=== PATIENT | male | born 1945 | race Caucasian/White ===

== ENCOUNTER 2019-04-10 11:43 | Outpatient (CLI) | payer OTHER, SELFPAY ==
[2019-04-10 12:55] LABS: Abs Immature Grans 0.01 k/cumm (0.0-0.09); Absolute Basophil Count 0.01 k/cumm (0.0-0.2); Absolute Lymphocyte Count 0.84 k/cumm (1.2-3.4); Absolute Monocyte Count 1.01 k/cumm (0.11-0.7); Absolute Neutrophil Count 6.14 k/cumm (1.2-6.7); Basophils % 0.1; HCT 44.1 % (40.0-50.0); HGB 14.9 g/dL (13.5-17.5); Immature Grans % 0.1; Lymphocytes % 10.5; Mean Corp. HGB Concentration 33.8 g/dL (32.0-36.0); Mean Corpuscular Hemoglobin 31.3 pg (27.0-33.0); Mean Corpuscular Volume 92.6 fL (80-95); Mean Platelet Volume 11.5 fL (8.0-11.0); Monocytes % 12.6; Neutrophils % 76.7; Platelet Count 164 x1000/uL (130-400); RBC 4.76 m/cumm (4.50-6.00); RBC Distribution Width 13.4 % (11.8-14.1); White Blood Cell Count 8.01 k/cumm (4.4-10.8)
[2019-04-10 13:04] LABS: INR 1.3 (0.9-1.1); Prothrombin Time 13.2 sec (9.3-11.0)
[2019-04-10 14:10] LABS: ALT 90 U/L (12-78); AST 75 U/L (15-37); Albumin 3.1 g/dL (3.4-5.0); Alkaline Phosphatase 78 U/L (46-116); Anion Gap 12.9 mmol/L (3-11); BUN 16 mg/dL (7-18); CO2 25.1 mmol/L (21.0-32.0); CREATININE 1.01 mg/dL (0.70-1.30); Calcium 8.2 mg/dL (8.5-10.1); Chloride 96 mmol/L (98-107); Glucose 115 mg/dL (70-100); Potassium 3.9 mmol/L (3.5-5.1); Sodium 134 mmol/L (136-145); Total Protein 6.4 g/dL (6.4-8.2)
== END 2019-04-10 12:03 ==
PROVIDERS: PCP Family Medicine; Visit Provider Nurse Practitioner Family
DX: J18.9 Pneumonia, unspecified organism (principal)
CPT/HCPCS: 36415; 80053; 85025; 85610

== ENCOUNTER 2019-04-12 00:55 | Emergency (ER) | payer OTHER, SELFPAY ==
[2019-04-12] VITALS (75 sets, daily range): BP systolic 100–138; BP diastolic 65–95; PULSE 50–136; RESP 0–30; TEMP 37–38.1; O2SAT 89–98
--- NOTE | 2019-04-12 01:03 | ED.GENADUL_ITS ---
Discharge Plan Disposition Patient Disposition: [facility], [place] Condition: Stable Discharge Details Chief Complaint: SOB Clinical Impression: Pneumonia involving right lung, Atrial fibrillation with RVR, Subtherapeutic anticoagulation ED Provider: Iban Kumar [place] Karthik and New Rx's Prescriptions: No Action hydrochlorothiazide 12.5 mg capsule 12.5 mg PO DAILY Qty: 90 RF: 4 amoxicillin-pot clavulanate 875-125 mg tablet 1 tab PO Q12H Qty: 14 RF: 0 benzonatate 100 mg capsule 100 - 200 mg PO TID PRN (Reason: cough) Qty: 60 RF: 0 celecoxib 100 MG capsule 100 mg PO DAILY Qty: 90 RF: 4 diltiazem HCl 240 mg capsule,ext.rel 24h degradable 240 mg PO DAILY Qty: 90 RF: 4 lisinopril 20 mg tablet 20 mg PO DAILY Qty: 90 RF: 4 metoprolol succinate 100 mg tablet extended release 24 hr 100 mg PO DAILY Qty: 90 RF: 4 simvastatin 40 mg tablet 40 mg PO DAILY Qty: 90 RF: 4 warfarin [Coumadin] 5 MG tablet 5 mg PO DIRECTED RF: 0 Medical Decision Making Patient presenting with A. fib with RVR with history of same. He is being treated for pneumonia with Augmentin x3 doses. He is tachypneic with marked lung changes on the right. Will place IV and start fluid resuscitation. Check laboratory studies including blood cultures and sputum culture. Chest x-ray ordered. EKG shows rapid A. fib with PVCs. No acute ST elevation. Left bundle branch apparent. No old to compare he will need admission. There are no beds at this hospital. He is a [facility] patient so I will be contacting [place]. Laboratory studies from his doctor visit reveals a non-therapeutic INR. Normal white count. Normal chemistries. Elevated LFTs to some degree. [facility] 02:45 - Patient's white count remains normal. Chemistries significant for sodium of 128 which is down from previous just done 2 days ago. Kidney function remains normal. Liver function continues to go up with AST of 105 and ALT of 117. Lactic acid is less than 2. Magnesium a little low at 1.7. I will replace with 2 g of IV mag. Saturations and respiratory rate is better after the neb and on oxygen. Troponin is negative. Chest x-ray shows a significant right lower lobe infiltrate. His heart rate is still elevated but is not jumping up to the 130 - 140 range. Discussed with the [facility] in [place]. They have accepted the patient for admission but cannot take him until tomorrow morning after 8. We will keep the patient in the ED until can transfer in the morning by ambulance. We will plan second liter of LR prior to giving beta-tracie for rate control if this does not bring his rate down. 06:00 - Patient's heart rate has come down without use of medication. He has responded to fluids. His blood pressure has held. Magnesium is completed. Antibiotics are completed. Heart rate is now below 100. He still has PVCs. He is stable and awaiting transport by ambulance to the [facility] in [place]. 07:00 - Patient discussed with Dr. Vuong again at [facility]. He is updated on patient status. Patient is accepted for transfer with ambulance estimated for transport at 8 am. Medical Records Medical records reviewed: Yes I reviewed the patient's medical records. Imaging Data Radiologic Study: Attestation: I personally reviewed and interpreted this imaging study as follows: Imaging: X-Ray My impression: RLL pneumonia Lab Data Lab results reviewed: Yes I reviewed the patient's lab results. 04/12/19 02:05 Blood Blood Culture - Pending 04/12/19 01:18 Blood Blood Culture - Pending Laboratory Tests Range/Units 04/12/19 04/12/19 04/12/19 01:18 01:18 01:18 WBC (4.4-10.8) k/cumm 10.17 RBC (4.50-6.00) m/cumm 4.55 Hgb (13.5-17.5) g/dL 14.4 Hct (40.0-50.0) % 41.2 MCV (80-95) fL 90.5 MCH (27.0-33.0) pg 31.6 MCHC (32.0-36.0) g/dL 35.0 RDW (11.8-14.1) % 13.3 Plt Count (130-400) x1000/uL 187 MPV (8.0-11.0) fL 10.5 Immature Gran % 0.2 Neutrophils % 81.0 Lymphocytes % 8.5 Monocytes % 10.0 Eosinophils % 0.2 Basophils % 0.1 Absolute Neutrophils (1.2-6.7) k/cumm 8.24 H Absolute Lymphocytes (1.2-3.4) k/cumm 0.86 L Absolute Monocytes (0.11-0.7) k/cumm 1.02 H Absolute Eosinophils (0.0-0.7) k/cumm 0.02 Absolute Basophils (0.0-0.2) k/cumm 0.01 PT (9.3-11.0) sec INR (0.9-1.1) Sodium (136-145) mmol/L 128 L Potassium (3.5-5.1) mmol/L 3.5 Chloride (98-107) mmol/L 92 L Carbon Dioxide (21.0-32.0) mmol/L 24.7 Anion Gap (3-11) mmol/L 11.3 H BUN (7-18) mg/dL 19 H Creatinine (0.70-1.30) mg/dL 1.07 Estimated GFR/1.73 m2 (mL/min/1.73m2) >= 60.00 Glucose (70-100) mg/dL 129 H Lactate (0.6-1.4) mmol/l 1.5 H Calcium (8.5-10.1) mg/dL 8.2 L Magnesium (1.8-2.4) mg/dL 1.7 L Total Bilirubin (0.2-1.0) mg/dL 1.9 H AST (15-37) U/L 105 H ALT (12-78) U/L 117 H Alkaline Phosphatase (46-116) U/L 93 Troponin I (0.00-0.06) ng/mL 0.06 Total Protein (6.4-8.2) g/dL 6.7 Albumin (3.4-5.0) g/dL 2.8 L Range/Units 04/12/19 01:18 WBC (4.4-10.8) k/cumm RBC (4.50-6.00) m/cumm Hgb (13.5-17.5) g/dL Hct (40.0-50.0) % MCV (80-95) fL MCH (27.0-33.0) pg MCHC (32.0-36.0) g/dL RDW (11.8-14.1) % Plt Count (130-400) x1000/uL MPV (8.0-11.0) fL Immature Gran % Neutrophils % Lymphocytes % Monocytes % Eosinophils % Basophils % Absolute Neutrophils (1.2-6.7) k/cumm Absolute Lymphocytes (1.2-3.4) k/cumm Absolute Monocytes (0.11-0.7) k/cumm Absolute Eosinophils (0.0-0.7) k/cumm Absolute Basophils (0.0-0.2) k/cumm PT (9.3-11.0) sec 12.1 H INR (0.9-1.1) 1.2 H Sodium (136-145) mmol/L Potassium (3.5-5.1) mmol/L Chloride (98-107) mmol/L Carbon Dioxide (21.0-32.0) mmol/L Anion Gap (3-11) mmol/L BUN (7-18) mg/dL Creatinine (0.70-1.30) mg/dL Estimated GFR/1.73 m2 (mL/min/1.73m2) Glucose (70-100) mg/dL Lactate (0.6-1.4) mmol/l Calcium (8.5-10.1) mg/dL Magnesium (1.8-2.4) mg/dL Total Bilirubin (0.2-1.0) mg/dL AST (15-37) U/L ALT (12-78) U/L Alkaline Phosphatase (46-116) U/L Troponin I (0.00-0.06) ng/mL Total Protein (6.4-8.2) g/dL Albumin (3.4-5.0) g/dL ECG Data Attestation: I personally reviewed and interpreted this ECG (s) as follows: Prior ECG tracings: not available for review Interpretation: Atrial fibrillation with PVCs. Left bundle branch appearance. Nonspecific ST changes. HPI General Mode of arrival: ambulatory . Date/Time Provider Initiated Documentation: 04/12/19 00:59 . Limitations to Documentation: no limitations . Information obtained by: patient, RN notes reviewed and old records reviewed . HPI Narrative: Patient is brought in for increased difficulty breathing, cough, fever. Patient started feeling unwell with generalized weakness and malaise a week ago. He developed cough and was seen by primary care couple days ago. He was started on Augmentin for presumed pneumonia. He has taken 3 doses. He feels worse tonight and has had increased difficulty breathing. He has no pain. He has had some episodes of nausea and vomiting. He does tolerate fluids and continues to make urine. Reportedly had a fever to 103 at home this evening and was brought in for evaluation. Related Data Home Medications Medication Instructions Recorded Confirmed warfarin [Coumadin] 5 mg PO DIRECTED 11/02/13 04/12/19 celecoxib 100 mg PO DAILY #90 cap 02/01/18 04/12/19 diltiazem ER (XR/XT) 240 mg 240 mg PO DAILY #90 tab 07/19/18 04/12/19 capsule,extended release 24 hr, controlled lisinopril 20 mg tablet 20 mg PO DAILY #90 tab-cap 07/19/18 04/12/19 metoprolol succinate ER 100 mg 100 mg PO DAILY #90 tab-cap 07/19/18 04/12/19 tablet,extended release 24 hr simvastatin 40 mg tablet 40 mg PO DAILY #90 tab 07/19/18 04/12/19 hydrochlorothiazide 12.5 mg capsule 12.5 mg PO DAILY #90 cap 02/07/19 04/12/19 amoxicillin 875 mg-potassium 1 tab PO Q12H #14 tab 04/10/19 04/12/19 clavulanate 125 mg tablet benzonatate 100 mg capsule 100 - 200 mg PO TID PRN #60 cap 04/10/19 04/12/19 Previous Rx's Medication Instructions Recorded celecoxib 100 mg PO DAILY #90 cap 02/01/18 diltiazem ER (XR/XT) 240 mg 240 mg PO DAILY #90 tab 07/19/18 capsule,extended release 24 hr, controlled lisinopril 20 mg tablet 20 mg PO DAILY #90 tab-cap 07/19/18 metoprolol succinate ER 100 mg 100 mg PO DAILY #90 tab-cap 07/19/18 tablet,extended release 24 hr simvastatin 40 mg tablet 40 mg PO DAILY #90 tab 07/19/18 hydrochlorothiazide 12.5 mg capsule 12.5 mg PO DAILY #90 cap 02/07/19 amoxicillin 875 mg-potassium 1 tab PO Q12H #14 tab 04/10/19 clavulanate 125 mg tablet benzonatate 100 mg capsule 100 - 200 mg PO TID PRN #60 cap 04/10/19 Allergies Allergy/AdvReac Type Severity Reaction Status Date / Time No Known Allergies Allergy Verified 04/12/19 01:11 Review of Systems Review of Systems 07/28 Review of Systems completed and is negative except as stated above in HPI (Systems reviewed: Const, Eyes, ENT, Resp, CV, GI, , MSK, Skin, Neuro) [facility] Medical History Atrial fibrillation (Chronic) Essential hypertension (Chronic 02/01/18) Hyperlipidemia (Chronic) MCFP (current) use of anticoagulants (Chronic) Primary cardiomyopathy (Chronic) Surgical History Extraction of cataract (~2013) KNEE REPAIR Family History Mother Heart disease Father Heart disease Neoplasm Brother No problems noted. Brother No problems noted. Maternal Grandmother No problems noted. Son No problems noted. Son No problems noted. Son No problems noted. Daughter No problems noted. Daughter No problems noted. FAMILY HISTORY Heart disease Social History Smoking/Tobacco Use Status: Former Tobacco Use Second Hand Exposure: No Alcohol Intake: current Alcohol Intake frequency: a few times a week Alcohol type: beer, wine and hard liquor Drug use: Never Substance use type: does not use Household members: spouse Housing: house Communication Needs: None Do you need help understanding health information?: Never Pets and animals: Yes Pets and animals: cat(s), dog(s) and horse(s) Sexually active: Yes Do you think of yourself as: straight/heterosexual Current gender identity: male What is your relationship status?: How often do you talk on the phone with friends or family?: three or more times per week How often do you get together with friends or relatives?: once per week How often do you attend judaism or catholic services?: decline to answer Do you belong to any clubs or organized social groups?: no Panel score (0-1 are the most socially isolated patients): 2 What type of physical activity do you participate in: swimming Duration: < 15 minutes/day Frequency: 3-4 times per week Lia/Voodoo: None Special lia needs: No Seatbelt use: always Helmet use: No Drive intox or ride w/intox driver salesman: No Do you feel safe at home: Yes Do you feel safe in your relationship?: Yes Exam Narrative Exam Narrative: Vitals: Afebrile but feels hot. Tachycardic but normal blood pressure. Tachypneic with saturations in the low 90s. Const: WDWN male in NAD. HEENT: NC/AT. Normal facial exam. Mucous membranes dry. Eyes: Normal conjunctiva and sclera. Neck: Supple. Trachea midline. Lungs: Tachypneic. Loud rhonchi in the right mid to lower lung field. Scattered wheezing throughout but more prominent on the right. Cor: Irregularly irregular rhythm with tachycardia. No murmur appreciated. Good radial pulses. GI: Soft. NT/ND. No guarding or rebound. Neuro: A+O x 3. CN grossly in tact. Good strength and no focal deficit. Ext: No C/C/E. No deformity or tenderness. Skin: Hot and dry without rash. Critical Care Time Critical Care Time: Yes Total Critical Care Time: 60 Attestation: Upon my evaluation, this patient had a high probability of imminent or life-threatening deterioration, which required my direct attention, intervention, and personal management. I have personally provided 60 minutes of critical care time exclusive of time spent on separately billable procedures. Time includes review of laboratory data, radiology results, discussion with consultants, and monitoring for potential decompensation. Interventions were performed as documented above.
[2019-04-12 01:36] LABS: Lactate-non-spesis 1.5 mmol/l (0.6-1.4)
[2019-04-12] MEDS: Albuterol/Ipratropium 3 ML UPD VIAL UPD (01:36)
[2019-04-12] MEDS: Lactated Ringers 1,000 ML 1000 ML IV ×2 (01:37→04:00)
[2019-04-12 01:39] LABS: Abs Immature Grans 0.02 k/cumm (0.0-0.09); Absolute Basophil Count 0.01 k/cumm (0.0-0.2); Absolute Eosinophil Count 0.02 k/cumm (0.0-0.7); Absolute Lymphocyte Count 0.86 k/cumm (1.2-3.4); Absolute Monocyte Count 1.02 k/cumm (0.11-0.7); Absolute Neutrophil Count 8.24 k/cumm (1.2-6.7); Basophils % 0.1; Eosinophils % 0.2; HCT 41.2 % (40.0-50.0); HGB 14.4 g/dL (13.5-17.5); Immature Grans % 0.2; Lymphocytes % 8.5; Mean Corpuscular Hemoglobin 31.6 pg (27.0-33.0); Mean Corpuscular Volume 90.5 fL (80-95); Mean Platelet Volume 10.5 fL (8.0-11.0); Platelet Count 187 x1000/uL (130-400); RBC 4.55 m/cumm (4.50-6.00); RBC Distribution Width 13.3 % (11.8-14.1); White Blood Cell Count 10.17 k/cumm (4.4-10.8)
[2019-04-12] MEDS: cefTRIAXone 2 GM/50 ML BAG IVPB (01:46)
[2019-04-12] MEDS: Acetaminophen 325 MG TAB 650 MG PO (01:49)
[2019-04-12 01:51] LABS: INR 1.2 (0.9-1.1); Prothrombin Time 12.1 sec (9.3-11.0)
[2019-04-12 01:57] LABS: ALT 117 U/L (12-78); AST 105 U/L (15-37); Albumin 2.8 g/dL (3.4-5.0); Alkaline Phosphatase 93 U/L (46-116); Anion Gap 11.3 mmol/L (3-11); BUN 19 mg/dL (7-18); Bilirubin, Total 1.9 mg/dL (0.2-1.0); CO2 24.7 mmol/L (21.0-32.0); CREATININE 1.07 mg/dL (0.70-1.30); Calcium 8.2 mg/dL (8.5-10.1); Chloride 92 mmol/L (98-107); Glucose 129 mg/dL (70-100); Magnesium 1.7 mg/dL (1.8-2.4); Potassium 3.5 mmol/L (3.5-5.1); Sodium 128 mmol/L (136-145); Total Protein 6.7 g/dL (6.4-8.2); Troponin I 0.06 ng/mL (0.00-0.06)
--- NOTE | 2019-04-12 02:10 | DI.RAD_ITS ---
SYMPTOM/DIAGNOSIS: COUGH, SOB PORTABLE CHEST: No prior comparison exams are available. The heart is enlarged and the aorta is tortuous. There is an infiltrate seen in the right mid and lower lung sim. The left lung appears clear. IMPRESSION: Right lower lobe infiltrate. Cardiomegaly.
[2019-04-12] MEDS: AZITHROMYCIN 500 MG in Normal Saline 250 ML 250 MG IVPB (02:26)
--- NOTE | 2019-04-12 03:05 | DI.VRAD_ITS ---
EXAM: XR Chest, 1 View EXAM DATE/TIME: 04/12/2019 1:25 AM CLINICAL HISTORY: 73 years old, male; Cough and shortness of breath TECHNIQUE: Imaging protocol: XR of the chest, 1 view. COMPARISON: No relevant prior studies available. FINDINGS: Lungs: Nonspecific right lung infiltrate, possibly of infectious or inflammatory etiology. Pleural space: Unremarkable. No pleural effusion. No pneumothorax. Heart/Mediastinum: Unremarkable. No cardiomegaly. Bones/joints: Unremarkable. IMPRESSION: Nonspecific right lung infiltrate, possibly of infectious or inflammatory etiology. Dictated and Authenticated by: Alvaro George MD. Ordering:SEEMA Ferrera MD
[2019-04-12] MEDS: MAGNESIUM SULFATE 2 GM/50 ML BAG IVPB (04:01)
[2019-04-12] MEDS: Normal Saline Flush 10 ML SYR IVP (05:37)
[2019-04-12] MEDS: Lactated Ringers 1,000 ML 150 ML IV (06:19)
== END 2019-04-12 08:14 | disposition short-term general hospital (02) ==
PROVIDERS: Emergency Provider Emergency Medicine; PCP Family Medicine
DX: J18.9 Pneumonia, unspecified organism (principal); I44.7 Left bundle-branch block, unspecified; I48.0 Paroxysmal atrial fibrillation; R79.1 Abnormal coagulation profile; Z79.01 Long term (current) use of anticoagulants; T45.515A Adverse effect of anticoagulants, initial encounter
CPT/HCPCS: 36415; 80053; 87040; 87449; 93005; 94640; 96361; 96365; 96366; 96367; 96368; 99285; 71045; 83605; 83735; 84484; 85025; 85610; 93010; J0456; J7620

== ENCOUNTER 2020-07-16 04:31 | Outpatient (CLI) | payer OTHER, SELFPAY ==
[2020-07-18 13:09] LABS: Patient Race White; SARS-CoV-2 RNA Undetected (Undetected); SARS-CoV-2 Specimen Source Nasal
== END 2020-07-16 04:51 ==
PROVIDERS: PCP Family Medicine; Visit Provider Family Medicine
DX: Z11.59 Encounter for screening for other viral diseases (principal)
CPT/HCPCS: U0003

== ENCOUNTER 2021-12-05 19:40 | Outpatient (REF) | payer OTHER, SELFPAY ==
[2021-12-05 21:57] LABS: Abs Immature Grans 0.05 10^3/uL (0.0-0.06); Absolute Basophil Count 0.06 10^3/uL (0.0-0.2); Absolute Lymphocyte Count 2.32 10^3/uL (1.2-3.4); Absolute Monocyte Count 1.32 10^3/uL (0.1-0.8); Basophils % 0.5; Eosinophils % 0.8; HCT 37.8 % (40.0-50.0); HGB 11.8 g/dL (13.5-17.5); Immature Grans % 0.4; Lymphocytes % 19.5; MCH 31.3 pg (27.0-33.0); MCHC 31.2 % (32.0-36.0); MCV 100.3 fL (80-95); MPV 11.1 fL (8.0-11.0); Monocytes % 11.1; Neutrophils % 67.7; Nucleated RBC 0 %; Platelet Count 490 10^3/uL (130-400); RBC 3.77 10^6/uL (4.36-5.78); RDW 14.5 % (11.8-14.1); RDW-SD 51.9 fL; WBC 11.88 10^3/uL (4.4-10.8)
[2021-12-05 22:00] LABS: Absolute Neutrophil Count 8.04 10^3/uL (1.2-6.7); ESR 57 mm/hr (0-20)
[2021-12-05 22:09] LABS: ALT 35 U/L (16-63); AST 23 U/L (15-37); Albumin 2.6 g/dL (3.4-5.0); Alkaline Phosphatase 96 U/L (46-116); Anion Gap 9.1 mmol/L (3-11); BUN 22 mg/dL (7-18); Bilirubin, Total 0.4 mg/dL (0.2-1.0); C-Reactive Protein 4.32 mg/dL (0.0-0.3); CO2 25.9 mmol/L (21.0-32.0); Calcium 8.9 mg/dL (8.5-10.1); Chloride 103 mmol/L (98-107); Glucose 102 mg/dL (74-106); Potassium 5.2 mmol/L (3.5-5.1); Sodium 138 mmol/L (136-145); Total Protein 6.5 g/dL (6.4-8.2)
== END 2021-12-05 19:41 | disposition home or self-care (01) ==
LOC: LBN 19:40
PROVIDERS: PCP Nurse Practitioner Family; Visit Provider Internal Medicine
DX: T84.54XA Infection and inflammatory reaction due to internal left knee prosthesis, initial encounter (principal); B95.7 Other staphylococcus as the cause of diseases classified elsewhere
CPT/HCPCS: 80053; 85652; 85025; 86140

== ENCOUNTER 2021-12-12 14:05 | Outpatient (REF) | payer OTHER, SELFPAY ==
[2021-12-12 15:04] LABS: Abs Immature Grans 0.03 10^3/uL (0.0-0.06); Absolute Basophil Count 0.03 10^3/uL (0.0-0.2); Absolute Eosinophil Count 0.11 10^3/uL (0.0-0.7); Absolute Lymphocyte Count 1.56 10^3/uL (1.2-3.4); Absolute Monocyte Count 1.01 10^3/uL (0.1-0.8); Absolute Neutrophil Count 5.24 10^3/uL (1.2-6.7); Basophils % 0.4; Eosinophils % 1.4; HCT 41.1 % (40.0-50.0); HGB 12.8 g/dL (13.5-17.5); Immature Grans % 0.4; Lymphocytes % 19.5; MCH 31.5 pg (27.0-33.0); MCHC 31.1 % (32.0-36.0); MCV 101.2 fL (80-95); MPV 11.2 fL (8.0-11.0); Monocytes % 12.7; Neutrophils % 65.6; Nucleated RBC 0 %; Platelet Count 297 10^3/uL (130-400); RBC 4.06 10^6/uL (4.36-5.78); RDW 15.3 % (11.8-14.1); WBC 7.98 10^3/uL (4.4-10.8)
[2021-12-12 15:13] LABS: ESR 26 mm/hr (0-20)
[2021-12-12 15:34] LABS: ALT 61 U/L (16-63); AST 39 U/L (15-37); Albumin 2.8 g/dL (3.4-5.0); Alkaline Phosphatase 95 U/L (46-116); Anion Gap 7.5 mmol/L (3-11); BUN 19 mg/dL (7-18); Bilirubin, Total 0.8 mg/dL (0.2-1.0); C-Reactive Protein 2.97 mg/dL (0.0-0.3); CO2 28.5 mmol/L (21.0-32.0); CREATININE 1.2 mg/dL (0.70-1.30); Chloride 100 mmol/L (98-107); Estimated GFR 59.18 (mL/min/1.73m2); Glucose 118 mg/dL (74-106); Potassium 4.1 mmol/L (3.5-5.1); Sodium 136 mmol/L (136-145); Total Protein 6.8 g/dL (6.4-8.2)
== END 2021-12-12 14:06 | disposition home or self-care (01) ==
LOC: NCHCN 14:05
PROVIDERS: PCP Nurse Practitioner Family; Visit Provider Internal Medicine
DX: T84.54XA Infection and inflammatory reaction due to internal left knee prosthesis, initial encounter (principal); B95.61 Methicillin susceptible Staphylococcus aureus infection as the cause of diseases classified elsewhere; Z79.2 Long term (current) use of antibiotics
CPT/HCPCS: 80053; 85652; 85025; 86140

== ENCOUNTER 2021-12-19 18:22 | Outpatient (REF) | payer OTHER, SELFPAY | END 2021-12-19 18:23 | disposition home or self-care (01) | LOC: LBN 18:22 | PROVIDERS: PCP Nurse Practitioner Family; Visit Provider Orthopaedic Surgery Foot and Ankle Surgery ==

== ENCOUNTER 2021-12-19 18:33 | Outpatient (REF) | payer OTHER, SELFPAY ==
[2021-12-19 22:20] LABS: HCT 42.6 % (40.0-50.0); HGB 13.8 g/dL (13.5-17.5); MCH 32.2 pg (27.0-33.0); MCHC 32.4 % (32.0-36.0); MCV 99.5 fL (80-95); MPV 11.3 fL (8.0-11.0); Platelet Count 268 10^3/uL (130-400); RBC 4.28 10^6/uL (4.36-5.78); RDW 15.7 % (11.8-14.1); RDW-SD 56.7 fL; WBC 6.97 10^3/uL (4.4-10.8)
[2021-12-19 22:21] LABS: ESR 46 mm/hr (0-20)
[2021-12-19 22:28] LABS: ALT 135 U/L (16-63); AST 88 U/L (15-37); Albumin 2.6 g/dL (3.4-5.0); Alkaline Phosphatase 87 U/L (46-116); Anion Gap 10.7 mmol/L (3-11); BUN 23 mg/dL (7-18); Bilirubin, Total 0.9 mg/dL (0.2-1.0); C-Reactive Protein 3.15 mg/dL (0.0-0.3); CO2 25.3 mmol/L (21.0-32.0); CREATININE 1.3 mg/dL (0.70-1.30); Calcium 8.6 mg/dL (8.5-10.1); Chloride 100 mmol/L (98-107); Estimated GFR 53.96 (mL/min/1.73m2); Glucose 122 mg/dL (74-106); Potassium 4.1 mmol/L (3.5-5.1); Sodium 136 mmol/L (136-145); Total Protein 6.5 g/dL (6.4-8.2)
== END 2021-12-19 18:34 | disposition home or self-care (01) ==
LOC: LBN 18:33
PROVIDERS: PCP Nurse Practitioner Family; Visit Provider Orthopaedic Surgery Foot and Ankle Surgery
DX: T84.54XD Infection and inflammatory reaction due to internal left knee prosthesis, subsequent encounter (principal); Z79.2 Long term (current) use of antibiotics; Z96.652 Presence of left artificial knee joint
CPT/HCPCS: 80053; 85027; 85652; 86140

== ENCOUNTER 2021-12-26 12:04 | Outpatient (REF) | payer OTHER, SELFPAY ==
[2021-12-26 13:25] LABS: Abs Immature Grans 0.02 10^3/uL (0.0-0.06); Absolute Basophil Count 0.05 10^3/uL (0.0-0.2); Absolute Eosinophil Count 0.07 10^3/uL (0.0-0.7); Absolute Lymphocyte Count 1.42 10^3/uL (1.2-3.4); Absolute Monocyte Count 0.79 10^3/uL (0.1-0.8); Absolute Neutrophil Count 4.62 10^3/uL (1.2-6.7); Basophils % 0.7; HCT 42.5 % (40.0-50.0); HGB 13.6 g/dL (13.5-17.5); Immature Grans % 0.3; Lymphocytes % 20.4; MCH 31.6 pg (27.0-33.0); MCV 98.8 fL (80-95); MPV 11.2 fL (8.0-11.0); Monocytes % 11.3; Neutrophils % 66.3; Nucleated RBC 0 %; Platelet Count 269 10^3/uL (130-400); RDW 15.4 % (11.8-14.1); RDW-SD 56.3 fL; WBC 6.97 10^3/uL (4.4-10.8)
[2021-12-26 13:31] LABS: ESR 36 mm/hr (0-20)
[2021-12-26 13:39] LABS: ALT 32 U/L (16-63); AST 25 U/L (15-37); Albumin 2.4 g/dL (3.4-5.0); Alkaline Phosphatase 79 U/L (46-116); Anion Gap 8.2 mmol/L (3-11); BUN 27 mg/dL (7-18); Bilirubin, Total 1.1 mg/dL (0.2-1.0); CO2 26.8 mmol/L (21.0-32.0); CREATININE 1.3 mg/dL (0.70-1.30); Calcium 8.3 mg/dL (8.5-10.1); Chloride 101 mmol/L (98-107); Estimated GFR 53.96 (mL/min/1.73m2); Glucose 107 mg/dL (74-106); Potassium 5.2 mmol/L (3.5-5.1); Sodium 136 mmol/L (136-145); Total Protein 6.1 g/dL (6.4-8.2)
== END 2021-12-26 12:05 | disposition home or self-care (01) ==
LOC: LBN 12:04
PROVIDERS: PCP Nurse Practitioner Family; Visit Provider Orthopaedic Surgery Foot and Ankle Surgery
DX: T84.54XA Infection and inflammatory reaction due to internal left knee prosthesis, initial encounter (principal)
CPT/HCPCS: 80053; 85652; 85025; 86140

== ENCOUNTER 2022-01-02 11:43 | Outpatient (REF) | payer OTHER, SELFPAY ==
[2022-01-02 13:41] LABS: Abs Immature Grans 0.03 10^3/uL (0.0-0.06); Absolute Basophil Count 0.04 10^3/uL (0.0-0.2); Absolute Eosinophil Count 0.09 10^3/uL (0.0-0.7); Absolute Lymphocyte Count 1.58 10^3/uL (1.2-3.4); Absolute Monocyte Count 0.68 10^3/uL (0.1-0.8); Absolute Neutrophil Count 4.38 10^3/uL (1.2-6.7); Basophils % 0.6; Eosinophils % 1.3; HCT 44.3 % (40.0-50.0); HGB 14.2 g/dL (13.5-17.5); Immature Grans % 0.4; Lymphocytes % 23.2; MCH 31.6 pg (27.0-33.0); MCHC 32.1 % (32.0-36.0); MCV 98.4 fL (80-95); MPV 10.8 fL (8.0-11.0); Neutrophils % 64.5; Nucleated RBC 0 %; Platelet Count 255 10^3/uL (130-400); RDW 15.1 % (11.8-14.1); RDW-SD 55.2 fL
[2022-01-02 13:44] LABS: ALT 20 U/L (16-63); AST 23 U/L (15-37); Albumin 2.5 g/dL (3.4-5.0); Alkaline Phosphatase 71 U/L (46-116); Anion Gap 8.6 mmol/L (3-11); BUN 23 mg/dL (7-18); Bilirubin, Total 1.2 mg/dL (0.2-1.0); C-Reactive Protein 2.73 mg/dL (0.0-0.3); CO2 25.4 mmol/L (21.0-32.0); CREATININE 1.2 mg/dL (0.70-1.30); Calcium 8.5 mg/dL (8.5-10.1); Chloride 99 mmol/L (98-107); Estimated GFR 59.18 (mL/min/1.73m2); Glucose 102 mg/dL (74-106); Potassium 4.8 mmol/L (3.5-5.1); Sodium 133 mmol/L (136-145); Total Protein 6.2 g/dL (6.4-8.2)
[2022-01-02 13:49] LABS: ESR 20 mm/hr (0-20)
== END 2022-01-02 11:44 | disposition home or self-care (01) ==
LOC: LBN 11:43
PROVIDERS: PCP Nurse Practitioner Family; Visit Provider Internal Medicine
DX: B95.61 Methicillin susceptible Staphylococcus aureus infection as the cause of diseases classified elsewhere (principal); Z79.2 Long term (current) use of antibiotics; T84.54XA Infection and inflammatory reaction due to internal left knee prosthesis, initial encounter
CPT/HCPCS: 80053; 85652; 85025; 86140

== ENCOUNTER 2022-03-10 13:00 | Outpatient (RCR) | payer OTHER, SELFPAY | END 2022-03-14 23:59 | disposition home or self-care (01) | LOC: CR 13:00 | PROVIDERS: PCP Nurse Practitioner Family; Visit Provider Internal Medicine Cardiovascular Disease | DX: Z51.89 Encounter for other specified aftercare (principal); I50.23 Acute on chronic systolic (congestive) heart failure | CPT/HCPCS: S9472 ==

== ENCOUNTER 2022-04-12 13:00 | Outpatient (RCR) | payer OTHER, SELFPAY | END 2022-04-13 23:59 | disposition home or self-care (01) | LOC: CR 13:00 | PROVIDERS: PCP Nurse Practitioner Family; Visit Provider Internal Medicine Cardiovascular Disease | DX: Z51.89 Encounter for other specified aftercare (principal); I50.23 Acute on chronic systolic (congestive) heart failure | CPT/HCPCS: S9472 ==

== ENCOUNTER 2022-05-12 13:00 | Outpatient (RCR) | payer OTHER, SELFPAY | END 2022-05-14 23:59 | disposition home or self-care (01) | LOC: CR 13:00 | PROVIDERS: PCP Nurse Practitioner Family; Referring Provider Internal Medicine Cardiovascular Disease; Visit Provider Internal Medicine Cardiovascular Disease | DX: Z51.89 Encounter for other specified aftercare (principal); I50.23 Acute on chronic systolic (congestive) heart failure | CPT/HCPCS: S9472 ==

== ENCOUNTER 2022-05-22 11:15 | Outpatient (RCR) | payer OTHER, SELFPAY | END 2022-06-14 23:59 | disposition home or self-care (01) | LOC: CR 11:15 | PROVIDERS: PCP Nurse Practitioner Family; Referring Provider Internal Medicine Cardiovascular Disease; Visit Provider Internal Medicine Cardiovascular Disease | DX: Z51.89 Encounter for other specified aftercare (principal); I50.23 Acute on chronic systolic (congestive) heart failure | CPT/HCPCS: S9472 ==

== ENCOUNTER 2022-06-08 13:07 | Outpatient (RCR) | payer SELFPAY ==
[2022-05-30 13:03] VITALS: BP 98/65; PULSE 72
[2022-06-01 13:03] VITALS: BP 121/83; PULSE 87
[2022-06-06 13:01] VITALS: BP 101/61; PULSE 75; O2SAT 97
[2022-06-08 13:08] VITALS: BP 111/66; PULSE 57; O2SAT 98
== END 2022-06-14 23:59 | disposition home or self-care (01) ==
LOC: CR 13:07
PROVIDERS: PCP Nurse Practitioner Family; Visit Provider Internal Medicine Cardiovascular Disease
DX: R69 Illness, unspecified (principal)

== ENCOUNTER 2022-07-13 13:02 | Outpatient (RCR) | payer SELFPAY ==
[2022-06-15 00:11] VITALS: BP 111/66; PULSE 57
[2022-06-15 13:00] VITALS: BP 94/48; PULSE 74
[2022-06-20 12:58] VITALS: BP 110/68; PULSE 63
[2022-06-22 13:04] VITALS: BP 114/69; PULSE 44
[2022-06-27 13:40] VITALS: BP 97/59; PULSE 65
[2022-06-29 12:56] VITALS: BP 106/68; PULSE 69
[2022-07-04 13:01] VITALS: BP 84/52; PULSE 44
[2022-07-11 13:00] VITALS: BP 129/73; PULSE 62
[2022-07-13 13:03] VITALS: BP 106/57; PULSE 82
== END 2022-07-14 23:59 | disposition home or self-care (01) ==
LOC: CR 13:02
PROVIDERS: PCP Nurse Practitioner Family; Visit Provider Internal Medicine Cardiovascular Disease
DX: R69 Illness, unspecified (principal)

== ENCOUNTER 2022-08-10 13:00 | Outpatient (RCR) | payer SELFPAY ==
[2022-07-15 00:20] VITALS: BP 106/57; PULSE 82
[2022-07-18 12:57] VITALS: BP 109/73; PULSE 64
[2022-07-20 12:59] VITALS: BP 113/68; PULSE 60
[2022-07-25 12:58] VITALS: BP 120/77; PULSE 75
[2022-07-27 13:05] VITALS: BP 117/72; PULSE 81
[2022-08-01 12:59] VITALS: BP 109/70; PULSE 68
[2022-08-03 13:00] VITALS: BP 112/81; PULSE 82
[2022-08-08 13:10] VITALS: BP 116/68; PULSE 65
[2022-08-10 14:00] VITALS: BP 116/67; PULSE 48
== END 2022-08-14 23:59 | disposition home or self-care (01) ==
LOC: CR 13:00
PROVIDERS: PCP Nurse Practitioner Family; Visit Provider Internal Medicine Cardiovascular Disease
DX: R69 Illness, unspecified (principal)
CPT/HCPCS: S9472

== ENCOUNTER 2022-09-12 13:03 | Outpatient (RCR) | payer SELFPAY ==
[2022-08-15 13:33] VITALS: BP 104/66; PULSE 46
[2022-08-17 13:06] VITALS: BP 100/56; PULSE 54
[2022-08-22 14:20] VITALS: BP 113/72; PULSE 51
[2022-08-24 13:05] VITALS: BP 101/63; PULSE 45
[2022-08-29 13:05] VITALS: BP 115/69; PULSE 92
[2022-08-31 13:07] VITALS: BP 110/64; PULSE 50
[2022-09-05 13:15] VITALS: BP 109/51; PULSE 72
[2022-09-12 13:13] VITALS: BP 112/68; PULSE 42
== END 2022-09-13 23:59 | disposition home or self-care (01) ==
LOC: CR 13:03
PROVIDERS: PCP Nurse Practitioner Family; Visit Provider Internal Medicine Cardiovascular Disease
DX: R69 Illness, unspecified (principal)

== ENCOUNTER 2022-10-12 12:58 | Outpatient (RCR) | payer SELFPAY ==
[2022-09-14 00:10] VITALS: BP 112/68; PULSE 42
[2022-09-14 13:28] VITALS: BP 107/63; PULSE 68
[2022-09-21 13:00] VITALS: BP 107/67; PULSE 84
[2022-09-26 13:05] VITALS: BP 102/67; PULSE 51
[2022-09-28 13:05] VITALS: BP 89/48; PULSE 44
[2022-10-03 13:08] VITALS: BP 137/86; PULSE 56
[2022-10-05 13:26] VITALS: BP 123/72; PULSE 62
[2022-10-10 13:06] VITALS: BP 117/69; PULSE 64
[2022-10-12 12:56] VITALS: BP 106/71; PULSE 58
== END 2022-10-14 23:59 | disposition home or self-care (01) ==
LOC: CR 12:58
PROVIDERS: PCP Nurse Practitioner Family; Visit Provider Internal Medicine Cardiovascular Disease
DX: R69 Illness, unspecified (principal)

== ENCOUNTER 2022-11-14 13:00 | Outpatient (RCR) | payer SELFPAY ==
[2022-10-15 00:19] VITALS: BP 106/71; PULSE 58
[2022-10-17 13:00] VITALS: BP 124/79; PULSE 73
[2022-10-19 15:19] VITALS: BP 111/75; PULSE 61
[2022-10-24 13:17] VITALS: BP 113/73; PULSE 66
[2022-10-26 14:16] VITALS: BP 118/69; PULSE 67
[2022-10-31 13:00] VITALS: BP 112/73; PULSE 66
[2022-11-02 13:09] VITALS: BP 100/60; PULSE 57
[2022-11-07 13:14] VITALS: BP 112/80; PULSE 85
[2022-11-09 13:00] VITALS: BP 111/65; PULSE 53
[2022-11-14 13:23] VITALS: BP 113/76; PULSE 82
== END 2022-11-14 23:59 | disposition home or self-care (01) ==
LOC: CR 13:00
PROVIDERS: PCP Nurse Practitioner Family; Visit Provider Internal Medicine Cardiovascular Disease
DX: R69 Illness, unspecified (principal)

== ENCOUNTER 2022-12-12 13:00 | Outpatient (RCR) | payer SELFPAY ==
[2022-11-23 13:23] VITALS: BP 100/62; PULSE 46
[2022-11-28 13:05] VITALS: BP 118/60; PULSE 85
[2022-11-30 13:02] VITALS: BP 108/85; PULSE 71; O2SAT 95
[2022-12-05 13:15] VITALS: BP 110/71; PULSE 78; O2SAT 97
[2022-12-07 13:07] VITALS: BP 103/66; PULSE 74
[2022-12-12 13:12] VITALS: BP 110/62; PULSE 71
== END 2022-12-12 23:59 | disposition home or self-care (01) ==
LOC: CR 13:00
PROVIDERS: PCP Nurse Practitioner Family; Visit Provider Internal Medicine Cardiovascular Disease
DX: R69 Illness, unspecified (principal)

== ENCOUNTER 2023-01-11 12:59 | Outpatient (RCR) | payer SELFPAY ==
[2022-12-13 00:17] VITALS: BP 110/62; PULSE 71
[2022-12-14 13:14] VITALS: BP 102/70; PULSE 51
[2022-12-19 13:11] VITALS: BP 120/73; PULSE 75
[2022-12-21 13:12] VITALS: BP 119/74; PULSE 79
[2022-12-26 13:07] VITALS: BP 127/83; PULSE 74
[2022-12-28 13:01] VITALS: BP 133/84; PULSE 59
[2023-01-02 13:09] VITALS: BP 115/68; PULSE 57
[2023-01-04 13:08] VITALS: BP 101/60; PULSE 45
[2023-01-09 13:05] VITALS: BP 124/82; PULSE 61
[2023-01-11 13:07] VITALS: BP 115/76; PULSE 77
== END 2023-01-12 23:59 | disposition home or self-care (01) ==
LOC: CR 12:59
PROVIDERS: PCP Nurse Practitioner Family; Visit Provider Internal Medicine Cardiovascular Disease

== ENCOUNTER 2023-02-08 13:12 | Outpatient (RCR) | payer SELFPAY ==
[2023-01-13 00:21] VITALS: BP 115/76; PULSE 77
[2023-01-18 13:08] VITALS: BP 108/67; PULSE 67
[2023-01-23 13:10] VITALS: BP 105/64; PULSE 52
[2023-01-25 13:03] VITALS: BP 112/70; PULSE 52
[2023-01-30 13:05] VITALS: BP 109/82; PULSE 82
[2023-02-01 13:20] VITALS: BP 130/74; PULSE 73
[2023-02-06 13:06] VITALS: BP 119/81; PULSE 75
[2023-02-08 13:18] VITALS: BP 120/62; PULSE 85
== END 2023-02-11 23:59 | disposition home or self-care (01) ==
LOC: CR 13:12
PROVIDERS: PCP Nurse Practitioner Family; Visit Provider Internal Medicine Cardiovascular Disease
DX: R69 Illness, unspecified (principal)

== ENCOUNTER 2023-03-13 12:59 | Outpatient (RCR) | payer SELFPAY ==
[2023-02-12 00:09] VITALS: BP 120/62; PULSE 85
[2023-02-13 13:21] VITALS: BP 139/81; PULSE 61
[2023-02-15 13:09] VITALS: BP 136/78; PULSE 72
[2023-02-20 13:12] VITALS: BP 120/84; PULSE 80
[2023-02-22 13:17] VITALS: BP 120/78; PULSE 63
[2023-02-27 13:59] VITALS: BP 108/73; PULSE 66
[2023-03-06 13:08] VITALS: BP 117/81; PULSE 77
[2023-03-08 13:02] VITALS: BP 106/57; PULSE 45
[2023-03-13 13:49] VITALS: BP 121/80; PULSE 81
== END 2023-03-14 23:59 | disposition home or self-care (01) ==
LOC: CR 12:59
PROVIDERS: PCP Nurse Practitioner Family; Visit Provider Internal Medicine Cardiovascular Disease

== ENCOUNTER 2023-04-12 13:05 | Outpatient (RCR) | payer SELFPAY ==
[2023-03-15 00:05] VITALS: BP 121/80; PULSE 81
[2023-03-15 13:31] VITALS: BP 111/67; PULSE 61
[2023-03-20 13:36] VITALS: BP 112/72; PULSE 66
[2023-03-22 13:02] VITALS: BP 129/71; PULSE 68
[2023-03-27 13:52] VITALS: BP 113/82; PULSE 74
[2023-03-29 13:12] VITALS: BP 126/73; PULSE 67
[2023-04-03 13:06] VITALS: BP 132/85; PULSE 78
[2023-04-05 13:00] VITALS: BP 85/49; PULSE 54
[2023-04-10 13:04] VITALS: BP 119/81; PULSE 79
[2023-04-12 13:09] VITALS: BP 122/65; PULSE 60
== END 2023-04-13 23:59 | disposition home or self-care (01) ==
LOC: CR 13:05
PROVIDERS: PCP Nurse Practitioner Family; Visit Provider Internal Medicine Cardiovascular Disease
DX: R69 Illness, unspecified (principal)

== ENCOUNTER 2023-05-10 13:04 | Outpatient (RCR) | payer SELFPAY ==
[2023-04-14 00:14] VITALS: BP 122/65; PULSE 60
[2023-04-19 13:13] VITALS: BP 104/72; PULSE 52
[2023-04-24 13:21] VITALS: BP 117/85; PULSE 54
[2023-04-26 13:10] VITALS: BP 130/81; PULSE 86
[2023-05-01 12:57] VITALS: BP 130/89; PULSE 54
[2023-05-03 13:33] VITALS: BP 120/72; PULSE 57
[2023-05-10 13:10] VITALS: BP 119/77; PULSE 83
[2023-05-10 15:49] VITALS: BP 119/77; PULSE 83
== END 2023-05-14 23:59 | disposition home or self-care (01) ==
LOC: CR 13:04
PROVIDERS: PCP Nurse Practitioner Family; Visit Provider Internal Medicine Cardiovascular Disease
DX: R69 Illness, unspecified (principal)

== ENCOUNTER 2023-06-14 13:07 | Outpatient (RCR) | payer SELFPAY ==
[2023-05-15 00:13] VITALS: BP 119/77; PULSE 83
[2023-05-15 13:22] VITALS: BP 117/79; PULSE 73
[2023-05-17 13:15] VITALS: BP 115/75; PULSE 65
[2023-05-22 13:04] VITALS: BP 128/84; PULSE 70
[2023-05-24 13:13] VITALS: BP 125/82; PULSE 85
[2023-05-29 13:37] VITALS: BP 120/75; PULSE 78
[2023-05-31 13:05] VITALS: BP 109/75; PULSE 91
[2023-06-12 13:22] VITALS: BP 118/80; PULSE 78
[2023-06-14 13:18] VITALS: BP 109/77; PULSE 66
== END 2023-06-14 23:59 | disposition home or self-care (01) ==
LOC: CR 13:07
PROVIDERS: PCP Nurse Practitioner Family; Visit Provider Internal Medicine Cardiovascular Disease
DX: R69 Illness, unspecified (principal)

== ENCOUNTER 2023-07-12 13:10 | Outpatient (RCR) | payer SELFPAY ==
[2023-06-15 00:07] VITALS: BP 109/77; PULSE 66
[2023-06-21 13:22] VITALS: BP 104/68; PULSE 61
[2023-06-26 13:07] VITALS: BP 116/76; PULSE 74
[2023-06-28 13:19] VITALS: BP 117/82; PULSE 82
[2023-07-03 13:16] VITALS: BP 111/74; PULSE 94
[2023-07-10 13:41] VITALS: BP 102/64; PULSE 44
[2023-07-12 13:12] VITALS: BP 122/80; PULSE 88
== END 2023-07-14 23:59 | disposition home or self-care (01) ==
LOC: CR 13:10
PROVIDERS: PCP Nurse Practitioner Family; Visit Provider Internal Medicine Cardiovascular Disease
DX: R69 Illness, unspecified (principal)

== ENCOUNTER 2023-08-14 13:13 | Outpatient (RCR) | payer SELFPAY ==
[2023-07-15 00:04] VITALS: BP 122/80; PULSE 88
[2023-07-17 12:58] VITALS: BP 108/79; PULSE 68
[2023-07-19 13:10] VITALS: BP 122/73; PULSE 84
[2023-07-24 13:20] VITALS: BP 131/79; PULSE 76
[2023-07-26 13:53] VITALS: BP 127/79; PULSE 63
[2023-07-31 13:07] VITALS: BP 116/80; PULSE 86
[2023-08-02 13:16] VITALS: BP 115/74; PULSE 68
[2023-08-07 13:41] VITALS: BP 129/88; PULSE 74
[2023-08-09 13:12] VITALS: BP 117/71; PULSE 76
[2023-08-14 13:08] VITALS: BP 102/77; PULSE 76
== END 2023-08-14 23:59 | disposition home or self-care (01) ==
LOC: CR 13:13
PROVIDERS: PCP Nurse Practitioner Family; Visit Provider Internal Medicine Cardiovascular Disease
DX: R69 Illness, unspecified (principal)

== ENCOUNTER 2023-09-13 13:10 | Outpatient (RCR) | payer SELFPAY ==
[2023-08-15 00:04] VITALS: BP 122/80; PULSE 88
[2023-08-16 13:09] VITALS: BP 111/82; PULSE 84
[2023-08-21 13:23] VITALS: BP 119/75; PULSE 50
[2023-08-23 13:01] VITALS: BP 126/81; PULSE 75
[2023-08-28 13:13] VITALS: BP 123/72; PULSE 71
[2023-08-30 13:46] VITALS: BP 122/88; PULSE 85
[2023-09-04 13:09] VITALS: BP 109/59; PULSE 85
[2023-09-11 13:12] VITALS: BP 121/68; PULSE 70
[2023-09-13 13:18] VITALS: BP 135/73; PULSE 62
== END 2023-09-13 23:59 | disposition home or self-care (01) ==
LOC: CR 13:10
PROVIDERS: PCP Nurse Practitioner Family; Visit Provider Internal Medicine Cardiovascular Disease
DX: R69 Illness, unspecified (principal)

== ENCOUNTER 2023-10-11 13:03 | Outpatient (RCR) | payer SELFPAY ==
[2023-09-14 00:04] VITALS: BP 122/80; PULSE 88
[2023-09-18 13:19] VITALS: BP 125/74; PULSE 76
[2023-09-20 15:46] VITALS: BP 142/77; PULSE 58
[2023-09-25 13:45] VITALS: BP 121/86; PULSE 86
[2023-09-27 14:47] VITALS: BP 119/78; PULSE 54
[2023-10-02 13:12] VITALS: BP 131/86; PULSE 80
[2023-10-04 12:56] VITALS: BP 142/86; PULSE 62
[2023-10-09 14:49] VITALS: BP 115/80; PULSE 63
[2023-10-11 13:00] VITALS: PULSE 75
== END 2023-10-14 23:59 | disposition home or self-care (01) ==
LOC: CR 13:03
PROVIDERS: PCP Nurse Practitioner Family; Visit Provider Internal Medicine Cardiovascular Disease
DX: R69 Illness, unspecified (principal)

== ENCOUNTER 2023-11-08 13:14 | Outpatient (RCR) | payer SELFPAY ==
[2023-10-15 00:03] VITALS: BP 122/80; PULSE 88
[2023-10-16 13:04] VITALS: BP 103/64; PULSE 74
[2023-10-18 12:56] VITALS: BP 121/71; PULSE 64
[2023-10-25 13:11] VITALS: BP 114/73; PULSE 68
[2023-10-30 13:42] VITALS: BP 123/76; PULSE 71
[2023-11-01 13:13] VITALS: BP 122/87; PULSE 70
[2023-11-06 13:12] VITALS: BP 108/78; PULSE 70
[2023-11-08 13:23] VITALS: BP 126/81; PULSE 61
== END 2023-11-14 23:59 | disposition home or self-care (01) ==
LOC: CR 13:14
PROVIDERS: PCP Nurse Practitioner Family; Visit Provider Internal Medicine Interventional Cardiology
DX: R69 Illness, unspecified (principal)

== ENCOUNTER 2023-12-13 13:01 | Outpatient (RCR) | payer SELFPAY ==
[2023-11-15 00:04] VITALS: BP 122/80; PULSE 88
[2023-11-15 13:01] VITALS: BP 124/82; PULSE 77
[2023-11-20 13:59] VITALS: PULSE 68
[2023-11-22 13:23] VITALS: BP 110/74; PULSE 64
[2023-11-27 13:40] VITALS: BP 110/72; PULSE 53
[2023-11-29 15:30] VITALS: BP 110/62; PULSE 62
[2023-12-04 13:07] VITALS: BP 123/77; PULSE 71
[2023-12-06 13:35] VITALS: BP 109/75; PULSE 84
[2023-12-11 13:14] VITALS: BP 129/80; PULSE 49
[2023-12-13 13:03] VITALS: BP 139/96; PULSE 86
== END 2023-12-13 23:59 | disposition home or self-care (01) ==
LOC: CR 13:01
PROVIDERS: PCP Nurse Practitioner Family; Visit Provider Internal Medicine Cardiovascular Disease
DX: R69 Illness, unspecified (principal)

== ENCOUNTER 2023-12-28 11:18 | Outpatient (CLI) | payer MEDICARE, SELFPAY ==
[2023-12-28 12:22] LABS: HCT 52.3 % (40.0-50.0); HGB 16.7 g/dL (13.5-17.5); MCH 32.9 pg (27.0-33.0); MCHC 31.9 % (32.0-36.0); MCV 103 fL (80-95); MPV 11.3 fL (8.0-11.0); Platelet Count 141 10^3/uL (130-400); RBC 5.07 10^6/uL (4.36-5.78); RDW 14.6 % (11.8-14.1); WBC 5.04 10^3/uL (4.4-10.8)
[2023-12-28 12:48] LABS: Anion Gap 8.2 mmol/L (3-11); BUN 18 mg/dL (7-18); CO2 28.8 mmol/L (21.0-32.0); CREATININE 1.2 mg/dL (0.70-1.30); Calcium 9.2 mg/dL (8.5-10.1); Chloride 107 mmol/L (98-107); Estimated GFR 62.67 (mL/min/1.73m2); Glucose 110 mg/dL (74-106); NT-proBNP 1072 pg/mL (<300); Potassium 4.6 mmol/L (3.5-5.1); Sodium 144 mmol/L (136-145)
== END 2023-12-28 11:19 | disposition home or self-care (01) ==
LOC: LOS 11:18
PROVIDERS: PCP Nurse Practitioner Family; Referring Provider Nurse Practitioner Family; Visit Provider Nurse Practitioner Family
DX: R05.9 Cough, unspecified (principal); J18.9 Pneumonia, unspecified organism; I50.9 Heart failure, unspecified
CPT/HCPCS: 36415; 80048; 85027; 83880

== ENCOUNTER → 2023-12-28 11:49 | Outpatient (CLI) | payer MEDICARE, SELFPAY ==
--- NOTE | 2023-12-28 12:00 | DI.RAD_ITS ---
Exam(s) XR CHEST 2V PA LATERAL EXAM: XR CHEST 2V PA LATERAL CLINICAL HISTORY: Cough, R05.9 TECHNIQUE: 2D digital imaging was performed. Two views. COMPARISON: CR XR PORTABLE CHEST AP from 04/12/2019 FINDINGS: HEART: Normal size. Aorta: Not dilated. PULMONARY VASCULATURE: Normal. LUNGS: Question of right perihilar infiltrate versus overlapping vessels. PLEURAL SPACE: No pleural effusion or pneumothorax. BONE:Unremarkable for age. Soft tissues: Unremarkable. IMPRESSION: Question right perihilar infiltrate versus overlying vessels. DATA REPOSITORY: RADIATION DOSE DELIVERED:
== END ==
PROVIDERS: PCP Nurse Practitioner Family; Visit Provider Nurse Practitioner Family
DX: R05.8 Other specified cough (principal); R91.8 Other nonspecific abnormal finding of lung field
CPT/HCPCS: 36415; 80048; 85027; 71046; 83880

== ENCOUNTER 2024-01-10 13:08 | Outpatient (RCR) | payer SELFPAY ==
[2023-12-14 00:03] VITALS: BP 122/80; PULSE 88
[2023-12-18 13:08] VITALS: BP 135/86; PULSE 76
[2023-12-20 13:06] VITALS: BP 126/81; PULSE 70
[2023-12-25 13:09] VITALS: BP 137/88; PULSE 77
[2024-01-01 13:07] VITALS: BP 135/92; PULSE 71
[2024-01-03 13:12] VITALS: BP 134/90; PULSE 82
[2024-01-08 13:34] VITALS: BP 139/78; PULSE 50
[2024-01-10 13:28] VITALS: BP 132/91; PULSE 78
== END 2024-01-13 23:59 | disposition home or self-care (01) ==
LOC: CR 13:08
PROVIDERS: PCP Nurse Practitioner Family; Visit Provider Internal Medicine Cardiovascular Disease
DX: R69 Illness, unspecified (principal)

== ENCOUNTER 2024-02-12 13:23 | Outpatient (RCR) | payer SELFPAY ==
[2024-01-15 14:14] VITALS: BP 130/81; PULSE 81
[2024-01-17 13:40] VITALS: BP 140/91; PULSE 72
[2024-01-22 13:24] VITALS: BP 132/97; PULSE 81
[2024-01-24 13:00] VITALS: BP 123/84; PULSE 66
[2024-01-29 13:08] VITALS: BP 143/81; PULSE 59
[2024-01-31 13:01] VITALS: BP 131/89; PULSE 63
[2024-02-05 13:10] VITALS: BP 117/84; PULSE 71
[2024-02-07 13:12] VITALS: BP 140/98; PULSE 69
[2024-02-12 13:47] VITALS: BP 119/85; PULSE 62
== END 2024-02-12 23:59 | disposition home or self-care (01) ==
LOC: CR 13:23
PROVIDERS: PCP Nurse Practitioner Family; Visit Provider Internal Medicine Cardiovascular Disease
DX: R69 Illness, unspecified (principal)

== ENCOUNTER 2024-03-13 13:13 | Outpatient (RCR) | payer SELFPAY ==
[2024-02-13 00:13] VITALS: BP 119/85; PULSE 62
[2024-02-14 13:04] VITALS: BP 133/82; PULSE 78; O2SAT 94
[2024-02-19 14:04] VITALS: BP 130/82; PULSE 53
[2024-02-21 14:36] VITALS: BP 128/85; PULSE 73
[2024-02-26 13:23] VITALS: BP 120/88; PULSE 77
[2024-03-04 13:13] VITALS: BP 126/90; PULSE 94
[2024-03-06 13:13] VITALS: BP 115/81; PULSE 76
[2024-03-06 14:34] VITALS: BP 115/81; PULSE 76
[2024-03-11 14:40] VITALS: BP 121/78; PULSE 79
[2024-03-13 13:15] VITALS: BP 124/90; PULSE 76
== END 2024-03-14 23:59 | disposition home or self-care (01) ==
LOC: CR 13:13
PROVIDERS: PCP Nurse Practitioner Family; Visit Provider Internal Medicine Cardiovascular Disease
DX: R69 Illness, unspecified (principal)

== ENCOUNTER 2024-04-10 13:21 | Outpatient (RCR) | payer SELFPAY ==
[2024-03-18 13:08] VITALS: BP 118/77; PULSE 84
[2024-03-20 14:24] VITALS: BP 124/72; PULSE 68
[2024-03-27 13:33] VITALS: BP 127/86; PULSE 46
[2024-04-08 13:45] VITALS: BP 112/80; PULSE 89
[2024-04-10 13:30] VITALS: BP 124/78; PULSE 60
== END 2024-04-13 23:59 | disposition home or self-care (01) ==
LOC: CR 13:21
PROVIDERS: PCP Nurse Practitioner Family; Visit Provider Internal Medicine Cardiovascular Disease
DX: R69 Illness, unspecified (principal)

== ENCOUNTER 2024-05-08 12:57 | Outpatient (RCR) | payer SELFPAY ==
[2024-04-15 14:36] VITALS: BP 114/76; PULSE 75
[2024-04-22 13:00] VITALS: BP 126/83; PULSE 76; O2SAT 94
[2024-04-29 13:09] VITALS: BP 120/80; PULSE 76
[2024-05-01 13:30] VITALS: BP 118/74; PULSE 50
[2024-05-06 14:07] VITALS: BP 142/90
[2024-05-08 13:02] VITALS: BP 115/78; PULSE 70
== END 2024-05-14 23:59 | disposition home or self-care (01) ==
LOC: CR 12:57
PROVIDERS: PCP Nurse Practitioner Family; Visit Provider Internal Medicine Cardiovascular Disease
DX: R69 Illness, unspecified (principal)

== ENCOUNTER 2024-06-12 13:03 | Outpatient (RCR) | payer SELFPAY ==
[2024-05-15 00:18] VITALS: BP 115/78; PULSE 70
[2024-05-15 13:01] VITALS: BP 133/81; PULSE 61
[2024-05-20 13:52] VITALS: BP 120/81; PULSE 83
[2024-05-22 13:20] VITALS: BP 131/88; PULSE 60
[2024-05-27 13:02] VITALS: BP 128/89; PULSE 101
[2024-05-29 13:32] VITALS: BP 119/78; PULSE 51
[2024-06-03 13:24] VITALS: BP 143/98; PULSE 58
[2024-06-05 13:08] VITALS: BP 134/84; PULSE 92
[2024-06-10 13:21] VITALS: BP 130/93; PULSE 83
[2024-06-12 13:08] VITALS: BP 134/89; PULSE 99
== END 2024-06-14 23:59 | disposition home or self-care (01) ==
LOC: CR 13:03
PROVIDERS: PCP Nurse Practitioner Family; Visit Provider Internal Medicine Cardiovascular Disease
DX: R69 Illness, unspecified (principal)

== ENCOUNTER 2024-07-08 13:00 | Outpatient (RCR) | payer SELFPAY ==
[2024-06-15 00:09] VITALS: BP 115/78; PULSE 70
[2024-06-17 13:14] VITALS: BP 131/92; PULSE 97
[2024-06-24 13:32] VITALS: BP 128/86; PULSE 95
[2024-06-26 13:14] VITALS: BP 124/87; PULSE 60
[2024-07-01 13:14] VITALS: BP 127/87; PULSE 59
[2024-07-03 13:34] VITALS: BP 131/85; PULSE 76
[2024-07-08 13:31] VITALS: BP 126/84; PULSE 49
== END 2024-07-14 23:59 | disposition home or self-care (01) ==
LOC: CR 13:00
PROVIDERS: PCP Nurse Practitioner Family; Visit Provider Internal Medicine Cardiovascular Disease
DX: R69 Illness, unspecified (principal)

== ENCOUNTER 2024-08-14 13:06 | Outpatient (RCR) | payer SELFPAY ==
[2024-07-15 14:42] VITALS: BP 134/94; PULSE 94
[2024-07-17 13:12] VITALS: BP 138/95; PULSE 79; O2SAT 95
[2024-07-22 14:58] VITALS: BP 140/94; PULSE 80
[2024-07-24 13:21] VITALS: BP 133/95; PULSE 78
[2024-07-29 15:39] VITALS: BP 134/102; PULSE 86
[2024-07-31 13:02] VITALS: BP 137/94; PULSE 96; O2SAT 95
[2024-08-05 13:36] VITALS: BP 126/84; PULSE 93
[2024-08-07 13:12] VITALS: BP 155/91; PULSE 102
[2024-08-12 13:30] VITALS: BP 130/94; PULSE 51
[2024-08-14 13:10] VITALS: BP 153/76; PULSE 57
== END 2024-08-14 23:59 | disposition home or self-care (01) ==
LOC: CR 13:06
PROVIDERS: PCP Nurse Practitioner Family; Visit Provider Internal Medicine Cardiovascular Disease
DX: R69 Illness, unspecified (principal)

== ENCOUNTER 2024-09-09 13:43 | Outpatient (RCR) | payer SELFPAY ==
[2024-08-15 00:36] VITALS: BP 153/76; PULSE 57
[2024-08-19 13:05] VITALS: BP 133/98; PULSE 82
[2024-08-21 14:09] VITALS: BP 143/85; PULSE 60
[2024-08-26 13:11] VITALS: BP 146/103; PULSE 48
[2024-08-28 13:06] VITALS: BP 137/82; PULSE 73
[2024-09-02 13:13] VITALS: BP 126/85; PULSE 57
[2024-09-04 13:10] VITALS: BP 128/79; PULSE 50; O2SAT 95
[2024-09-09 13:46] VITALS: BP 147/93; PULSE 69
== END 2024-09-13 23:59 | disposition home or self-care (01) ==
LOC: CR 13:43
PROVIDERS: PCP Nurse Practitioner Family; Visit Provider Internal Medicine Cardiovascular Disease
DX: R69 Illness, unspecified (principal)

== ENCOUNTER 2024-10-14 14:08 | Outpatient (RCR) | payer SELFPAY ==
[2024-09-14 00:31] VITALS: BP 153/76; PULSE 57
[2024-09-16 13:38] VITALS: BP 116/82; PULSE 78
[2024-09-18 13:05] VITALS: BP 120/88; PULSE 82
[2024-09-23 14:23] VITALS: BP 121/79; PULSE 66
[2024-09-25 12:59] VITALS: BP 127/93; PULSE 58
[2024-10-02 13:34] VITALS: BP 138/56; PULSE 62
[2024-10-07 13:10] VITALS: BP 124/94; PULSE 67
[2024-10-14 13:26] VITALS: BP 125/72; PULSE 70
== END 2024-10-14 23:59 | disposition home or self-care (01) ==
LOC: CR 14:08
PROVIDERS: PCP Nurse Practitioner Family; Visit Provider Internal Medicine Cardiovascular Disease
DX: R69 Illness, unspecified (principal)

== ENCOUNTER 2024-11-13 12:59 | Outpatient (RCR) | payer SELFPAY ==
[2024-10-15 00:13] VITALS: BP 153/76; PULSE 57
[2024-10-16 13:33] VITALS: BP 129/85; PULSE 76
[2024-10-21 13:02] VITALS: BP 131/96
[2024-10-30 13:00] VITALS: BP 133/86; PULSE 43; O2SAT 94
[2024-11-04 14:21] VITALS: BP 135/73; PULSE 75
[2024-11-06 13:01] VITALS: BP 126/91; PULSE 66
[2024-11-11 14:47] VITALS: BP 135/85; PULSE 61
[2024-11-13 13:01] VITALS: BP 125/82; PULSE 63; O2SAT 96
== END 2024-11-14 23:59 | disposition home or self-care (01) ==
LOC: CR 12:59
PROVIDERS: PCP Nurse Practitioner Family; Visit Provider Internal Medicine Cardiovascular Disease
DX: R69 Illness, unspecified (principal)

== ENCOUNTER 2024-12-11 13:13 | Outpatient (RCR) | payer SELFPAY ==
[2024-11-18 13:53] VITALS: BP 120/79; PULSE 54
[2024-11-25 13:47] VITALS: BP 129/86; PULSE 65
[2024-12-02 13:33] VITALS: BP 122/91; PULSE 74
[2024-12-09 13:09] VITALS: BP 121/80; PULSE 48
[2024-12-11 13:53] VITALS: BP 126/78; PULSE 63
== END 2024-12-12 23:59 | disposition home or self-care (01) ==
LOC: CR 13:13
PROVIDERS: PCP Nurse Practitioner Family; Visit Provider Internal Medicine Cardiovascular Disease
DX: R69 Illness, unspecified (principal)

== ENCOUNTER 2025-01-08 13:01 | Outpatient (RCR) | payer SELFPAY ==
[2024-12-13 00:10] VITALS: BP 126/78; PULSE 63
[2024-12-16 13:00] VITALS: BP 135/92; PULSE 72
[2024-12-18 13:39] VITALS: BP 113/75; PULSE 65
[2024-12-23 13:47] VITALS: BP 127/92; PULSE 66
[2024-12-25 13:30] VITALS: BP 124/86; PULSE 84
[2024-12-30 14:09] VITALS: BP 116/77; PULSE 86
[2025-01-01 14:33] VITALS: BP 112/79; PULSE 77
[2025-01-06 14:21] VITALS: BP 123/87; PULSE 81
[2025-01-08 13:10] VITALS: BP 128/78; PULSE 82
== END 2025-01-12 23:59 | disposition home or self-care (01) ==
LOC: CR 13:01
PROVIDERS: PCP Nurse Practitioner Family; Visit Provider Internal Medicine Cardiovascular Disease
DX: R69 Illness, unspecified (principal)

== ENCOUNTER 2025-02-10 13:09 | Outpatient (RCR) | payer SELFPAY ==
[2025-01-13 00:06] VITALS: BP 126/78; PULSE 63
[2025-01-13 13:15] VITALS: BP 128/87; PULSE 90
[2025-01-15 13:05] VITALS: BP 136/95; PULSE 48; O2SAT 94
[2025-01-20 14:37] VITALS: BP 126/90; PULSE 54
[2025-01-22 13:00] VITALS: BP 129/83; PULSE 61; O2SAT 96
[2025-01-27 13:44] VITALS: BP 127/79; PULSE 68
[2025-01-29 14:13] VITALS: BP 115/78; PULSE 58
[2025-02-03 14:32] VITALS: BP 129/67; PULSE 65
[2025-02-05 13:25] VITALS: BP 131/79; PULSE 77
[2025-02-10 13:15] VITALS: BP 135/82; PULSE 54
== END 2025-02-11 23:59 | disposition home or self-care (01) ==
LOC: CR 13:09
PROVIDERS: PCP Nurse Practitioner Family; Visit Provider Internal Medicine Cardiovascular Disease
DX: R69 Illness, unspecified (principal)

== ENCOUNTER 2025-03-12 13:47 | Outpatient (RCR) | payer SELFPAY ==
[2025-02-12 00:16] VITALS: BP 126/78; PULSE 63
[2025-02-12 13:13] VITALS: BP 135/78; PULSE 69
[2025-02-17 13:30] VITALS: BP 119/84; PULSE 57
[2025-02-19 13:17] VITALS: BP 117/76; PULSE 55
[2025-02-24 13:05] VITALS: BP 125/77; PULSE 81
[2025-02-26 13:43] VITALS: BP 123/88; PULSE 77
[2025-03-03 14:20] VITALS: BP 129/79; PULSE 70
[2025-03-05 13:31] VITALS: BP 130/94; PULSE 60
[2025-03-10 14:07] VITALS: BP 132/82; PULSE 74
[2025-03-12 13:49] VITALS: BP 123/75; PULSE 80
== END 2025-03-14 23:59 | disposition home or self-care (01) ==
LOC: CR 13:47
PROVIDERS: PCP Nurse Practitioner Family; Visit Provider Internal Medicine Cardiovascular Disease
DX: R69 Illness, unspecified (principal)

== ENCOUNTER 2025-04-09 13:00 | Outpatient (RCR) | payer SELFPAY ==
[2025-03-15 00:10] VITALS: BP 126/78; PULSE 63
[2025-03-19 13:58] VITALS: BP 99/65; PULSE 77
[2025-03-24 14:29] VITALS: BP 111/77; PULSE 83
[2025-03-31 13:15] VITALS: BP 121/77; PULSE 77
[2025-04-02 13:43] VITALS: BP 111/82; PULSE 77
[2025-04-07 14:45] VITALS: BP 128/68; PULSE 86
[2025-04-09 13:00] VITALS: BP 131/89; PULSE 82
== END 2025-04-13 23:59 | disposition home or self-care (01) ==
LOC: CR 13:00
PROVIDERS: PCP Nurse Practitioner Family; Visit Provider Internal Medicine Cardiovascular Disease
DX: R69 Illness, unspecified (principal)

== ENCOUNTER 2025-05-14 13:00 | Outpatient (RCR) | payer SELFPAY ==
[2025-04-14 13:34] VITALS: BP 134/91; PULSE 67
[2025-04-16 12:58] VITALS: BP 130/82; PULSE 53; O2SAT 95
[2025-04-21 13:47] VITALS: BP 138/84; PULSE 72
[2025-04-23 13:19] VITALS: BP 121/75; PULSE 72
[2025-04-28 13:52] VITALS: BP 106/77; PULSE 77
[2025-04-30 13:06] VITALS: BP 126/80; PULSE 64; O2SAT 96
[2025-05-05 14:10] VITALS: BP 119/79; PULSE 77
[2025-05-07 13:18] VITALS: BP 110/76; PULSE 68
[2025-05-12 14:39] VITALS: BP 113/73; PULSE 61
[2025-05-14 13:20] VITALS: BP 116/79; PULSE 81
== END 2025-05-14 23:59 | disposition home or self-care (01) ==
LOC: CR 13:00
PROVIDERS: PCP Nurse Practitioner Family; Visit Provider Internal Medicine Cardiovascular Disease
DX: R69 Illness, unspecified (principal)

== ENCOUNTER 2025-06-11 13:00 | Outpatient (RCR) | payer SELFPAY ==
[2025-05-15 00:12] VITALS: BP 116/79; PULSE 81
[2025-05-26 13:00] VITALS: BP 127/87; PULSE 75
[2025-05-28 13:41] VITALS: BP 116/72; PULSE 68
[2025-06-02 13:24] VITALS: BP 125/50; PULSE 63
[2025-06-04 13:08] VITALS: BP 114/77; PULSE 68
[2025-06-09 13:26] VITALS: BP 118/70; PULSE 74
[2025-06-11 13:29] VITALS: BP 134/59; PULSE 63
== END 2025-06-14 23:59 | disposition home or self-care (01) ==
LOC: CR 13:00
PROVIDERS: PCP Nurse Practitioner Family; Visit Provider Internal Medicine Cardiovascular Disease
DX: R69 Illness, unspecified (principal)

== ENCOUNTER 2025-07-14 13:00 | Outpatient (RCR) | payer SELFPAY ==
[2025-06-16 13:50] VITALS: BP 122/81; PULSE 60
[2025-06-18 13:11] VITALS: BP 127/74; PULSE 77
[2025-06-23 13:25] VITALS: BP 118/80; PULSE 79
[2025-06-25 14:14] VITALS: BP 132/91; PULSE 86
[2025-06-30 13:21] VITALS: BP 133/92; PULSE 47
[2025-07-02 14:52] VITALS: BP 117/73; PULSE 75
[2025-07-07 14:34] VITALS: BP 102/72; PULSE 59
[2025-07-14 14:45] VITALS: BP 126/82; PULSE 78
== END 2025-07-14 23:59 | disposition home or self-care (01) ==
LOC: CR 13:00
PROVIDERS: PCP Nurse Practitioner Family; Visit Provider Internal Medicine Cardiovascular Disease
DX: R69 Illness, unspecified (principal)

== ENCOUNTER 2025-08-13 13:00 | Outpatient (RCR) | payer SELFPAY ==
[2025-07-15 00:21] VITALS: BP 126/82; PULSE 78
[2025-07-16 13:18] VITALS: BP 123/85; PULSE 69
[2025-07-21 14:01] VITALS: BP 124/74; PULSE 48
[2025-07-28 13:27] VITALS: BP 117/79; PULSE 68
[2025-07-30 13:29] VITALS: BP 133/83; PULSE 72
[2025-08-04 13:10] VITALS: BP 105/65; PULSE 74
[2025-08-07 12:55] VITALS: BP 114/69; PULSE 75
[2025-08-11 13:20] VITALS: BP 123/73; PULSE 67
[2025-08-13 13:13] VITALS: BP 113/72; PULSE 84; O2SAT 93
== END 2025-08-14 23:59 | disposition home or self-care (01) ==
LOC: CR 13:00
PROVIDERS: PCP Nurse Practitioner Family; Visit Provider Internal Medicine Cardiovascular Disease
DX: R69 Illness, unspecified (principal)

== ENCOUNTER 2025-09-08 13:00 | Outpatient (RCR) | payer SELFPAY ==
[2025-08-15 00:10] VITALS: BP 113/72; PULSE 84
[2025-08-20 13:15] VITALS: BP 129/90
[2025-08-25 13:14] VITALS: BP 124/77; PULSE 68
[2025-08-27 13:25] VITALS: BP 108/73; PULSE 64
[2025-09-01 13:19] VITALS: BP 120/80; PULSE 82
[2025-09-03 14:18] VITALS: BP 99/77; PULSE 44
[2025-09-08 13:18] VITALS: BP 112/76; PULSE 69
== END 2025-09-13 23:59 | disposition home or self-care (01) ==
LOC: CR 13:00
PROVIDERS: PCP Nurse Practitioner Family; Visit Provider Internal Medicine Cardiovascular Disease
DX: R69 Illness, unspecified (principal)

== ENCOUNTER 2025-10-13 13:00 | Outpatient (RCR) | payer SELFPAY ==
[2025-09-14 00:07] VITALS: BP 112/76; PULSE 69
[2025-09-17 13:32] VITALS: BP 108/73; PULSE 65
[2025-09-22 13:21] VITALS: BP 124/80; PULSE 74
[2025-09-24 13:48] VITALS: BP 120/59; PULSE 48
[2025-09-29 13:25] VITALS: BP 108/72; PULSE 66
[2025-10-01 13:49] VITALS: BP 110/63; PULSE 57
[2025-10-06 13:39] VITALS: BP 124/63; PULSE 55; O2SAT 93
[2025-10-13 13:22] VITALS: BP 132/82; PULSE 62
== END 2025-10-14 23:59 | disposition home or self-care (01) ==
LOC: CR 13:00
PROVIDERS: PCP Nurse Practitioner Family; Visit Provider Internal Medicine Cardiovascular Disease
DX: R69 Illness, unspecified (principal)